=== PATIENT | male | born 1975 | race Caucasian/White ===

== ENCOUNTER 2018-05-14 19:06 | Emergency (ER) | payer SELFPAY ==
[~2018-05-14] VITALS: Ht 170.2 cm; Wt 80.0 kg
[2018-05-14 19:10] VITALS: BP 146/79; PULSE 107; RESP 20; Ht 170.2 cm; Wt 80.0 kg
== END 2018-05-14 19:44 | disposition left against medical advice (07) ==
LOC: E/R 19:06
DX: Z53.21 Procedure and treatment not carried out due to patient leaving prior to being seen by health care provider (principal)